=== PATIENT | female | born 1980 | race Caucasian/White ===

== ENCOUNTER 2016-07-23 04:04 | Emergency (ER) | payer SELFPAY ==
[~2016-07-23 04:04] MED LIST: *DENIES; AMARYL2 PO; GLUCOPHAGE1000 MG PO; GOODY'S HEADAC1 EACH PO; PCET PO
== END 2016-07-23 05:15 | disposition home or self-care (01) ==
LOC: ER 04:04
PROC: 0HQHXZZ Repair Right Upper Leg Skin, External Approach (ICD-10-PCS; principal; 2016-07-23)
DX: T87.81 Dehiscence of amputation stump (principal); E11.22 Type 2 diabetes mellitus with diabetic chronic kidney disease; N18.9 Chronic kidney disease, unspecified; Z89.611 Acquired absence of right leg above knee; Z79.84 Long term (current) use of oral hypoglycemic drugs; Z79.899 Other long term (current) drug therapy; Z88.8 Allergy status to other drugs, medicaments and biological substances; W19.XXXA Unspecified fall, initial encounter
CPT/HCPCS: 90471; 90714; 99283; A9270-GY